=== PATIENT | male | born 1985 | race Caucasian/White ===

== ENCOUNTER 2022-08-20 06:11 | Outpatient (CLI) | payer OTHER ==
[~2022-08-20] VITALS: Ht 180 cm; Wt 103.2 kg
[2022-08-20] MEDS ORDERED: HYDR25TA4 PO (09:59)
[2022-08-20] MEDS ORDERED: AMLO-251 PO (09:59)
== END 2022-08-20 10:02 ==
LOC: PREOP 06:11
PROVIDERS: ATTEND Surgery
DX: Z01.818 Encounter for other preprocedural examination (principal)

== ENCOUNTER 2022-08-27 11:27 | Day surgery (SDC) | payer OTHER ==
[~2022-08-27] VITALS: Ht 180 cm; Wt 103.2 kg
[~2022-08-27 11:27] MED LIST: AMLO-251 PO; HYDR25TA4 PO; LACTATED RINGERS 1,000 ML IV STA
[2022-08-27] MEDS ORDERED: LIDOCAINE JELLY 2% 6 ML SYRINGE MM PRN (11:30)
[2022-08-27] MEDS ORDERED: PROPOFOL INJECTION 50 ML IV ONE ×2 (11:41→12:29)
[2022-08-27 11:44] VITALS: BP 184/99
--- NOTE | 2022-08-27 11:48 | Progress Note-Pre Operative ---
Pre-Operative Progress Note Date of Available H&P: Aug 27, 2022 Date H&P Reviewed: Aug 27, 2022 Time H&P Reviewed: 11:00 History & Physical: No changes noted Pre-Operative Diagnosis: rectal bleed GEOFFREY DELACRUZ MD Aug 27, 2022 11:48
--- NOTE | 2022-08-27 11:49 | Discharge Inst-Surgical ---
D/C Lap Instructions-JAYME Follow Up Activity as tolerated High Fiber Diet 25g or more per day Avoid Alcohol, Caffeine, Spicy [place] and Acid foods. Drink 64 fluid oz or more of fluids per day. Symptoms to Report: Fever over 101 degree F, Nausea/Vomiting If any problems/questions: Contact your physician or go to Emergency Room GEOFFREY DELACRUZ MD Aug 27, 2022 11:49
[2022-08-27] MEDS ORDERED: ONDANSETRON 4 MG (ZOFRAN) ORAL DISSOLVE TAB PO PRN (12:00)
[2022-08-27] MEDS ORDERED: ONDANSETRON 4 MG/2 ML (SDV) Z0FRAN IVP PRN (12:00)
[2022-08-27] MEDS ORDERED: LIDOCAINE JELLY 2% 6 ML SYRINGE ONE (12:01)
--- NOTE | 2022-08-27 12:34 | Anesthesia-General Post-Op ---
MAC Patient Condition Mental Status/LOC: Same as Preop Cardiovascular: Satisfactory Nausea/Vomiting: Absent Respiratory: Satisfactory Pain: Controlled Complications: Absent Post Op Complications Complications None Follow Up Care/Instructions Patient Instructions None needed. Anesthesiology Discharge Order Discharge Order Patient is doing well, no complaints, stable vital signs, no apparent adverse anesthesia problems. No complications reported per nursing. ELAINE DIOR CRNA Aug 27, 2022 12:34
[2022-08-27 12:40] VITALS: BP 109/70
[2022-08-27 12:45] VITALS: BP 110/74
[2022-08-27 12:50] VITALS: BP 125/94
--- NOTE | 2022-08-27 12:50 | Progress Note-Post Operative ---
Post-Operative Progess Note Surgeon (s)/Laser Technician (s) Surgeon GEOFFREY DELACRUZ MD Laser Technician: none Pre-Operative Diagnosis rectal bleed Post-Operative Diagnosis stage 3 ext and int hemorrhoids, moderate sigmoid diverticulosis. Procedure & Operative Findings Date of Procedure 08/27/22 Procedure Performed/Findings colonoscopy with hemorrhoidal banding x3 Anesthesia Type mac Estimated Blood Loss Estimated blood loss (mL): minimal Specimens/Packing Specimens Removed none GEOFFREY DELACRUZ MD Aug 27, 2022 12:50
[2022-08-27 13:14] VITALS: BP 125/94
--- NOTE | 2022-08-27 18:23 | OPERATIVE REPORT ---
DATE OF SERVICE: 08/27/2022 ATTENDING PRIMARY STORE CLERK CASHIER: Gianna Roche DNP PREOPERATIVE DIAGNOSIS: Rectal bleeding. POSTOPERATIVE DIAGNOSES: Acute on chronic stage III external and internal hemorrhoids, moderate sigmoid diverticulosis. PROCEDURE: Colonoscopy with internal hemorrhoid banding x3. SURGEON: Geoffrey Arteaga MD ANESTHESIA: Monitored anesthesia care. ESTIMATED BLOOD LOSS: Minimal. FINDINGS: Acute on chronic stage III external and internal hemorrhoids, moderate sigmoid diverticulosis. DISPOSITION: The patient tolerated the procedure well. INDICATIONS: The patient is a 37-year-old male who has had issues with bright red blood per rectum as well as discomfort, which he knows has been related to hemorrhoids. He states in the past 6 months, this has become much more constant and severe in nature. He has tried a number of different hemorrhoidal remedies with no success. He states that he was also treated with hydrocortisone suppositories as well as a high-fiber diet; however, continues to have issues with bleeding hemorrhoids. He continues to have issues with bleeding. DESCRIPTION OF PROCEDURE: The patient was brought to the endoscopy suite and laid in the left lateral decubitus position. After adequate IV pain and sedative medications and monitored anesthesia care, a digital rectal examination was performed. Stage III external and internal hemorrhoids were identified, which were slightly edematous, no active bleeding. Normal sphincter tone was felt and there were no palpable masses. Prostate gland was palpable and appeared normal. The endoscope was then intubated into the anus, rectum gently insufflated. The endoscope was then advanced through the valves of Rider of the rectum with no polyps or any neoplasms identified. Near the sigmoid colon, a moderate sigmoid diverticulosis identified. The endoscope was then advanced to the remainder of the descending, transverse and ascending colon to the cecum, which were normal. There were no polyps or any neoplasms identified. The endoscope was slowly withdrawn while taking second look and suctioning of residual air with no additional findings. The anoscope was then placed and an anal exam under anesthesia was then performed. Again, stage III internal hemorrhoids encompassing all 3 hemorrhoidal cushions were identified. We then proceeded with banding of the internal hemorrhoidal cushions above the dentate line with no elicitation of any pain to indicate the proper location. We did this in a systematic fashion banding all 3 hemorrhoidal cushions. Good hemostasis was observed. The patient tolerated the procedure well. We will recommend continued high-fiber diet with a fiber supplement, which should equal or exceed 30 grams daily to promote soft consistency stools on a daily basis. He should also expect to have continued bleeding and slopping in the next few weeks as well. If he has recurrence of hemorrhoidal bleeding or other complications associated with the hemorrhoids or worsening symptomatology, we will then recommend a formal Mathews closed hemorrhoidectomy. Job ID: [id number] DocumentID: [id number] Dictated Date: 08/27/2022 12:42:36 Donor Services Specialist Date: 08/27/2022 18:20:00 Dictated By: GEOFFREY ARTEAGA MD
== END 2022-08-27 13:15 | disposition home or self-care (01) ==
LOC: ENDO 11:27
PROVIDERS: ATTEND Surgery
DX: K64.2 Third degree hemorrhoids (principal); K64.4 Residual hemorrhoidal skin tags; K57.30 Diverticulosis of large intestine without perforation or abscess without bleeding